=== PATIENT | female | born 1955 | race Caucasian/White ===

== ENCOUNTER 2021-11-21 08:16 | Outpatient (CLI) | payer OTHER, SELFPAY | END 2021-11-21 08:17 | disposition home or self-care (01) | LOC: RAD 08:19 | PROVIDERS: Visit Provider Family Medicine | DX: M54.16 Radiculopathy, lumbar region (principal); M51.36 Other intervertebral disc degeneration, lumbar region | CPT/HCPCS: 64483; J1100; Q9966 ==